=== PATIENT | female | born 1945 | race Caucasian/White ===

== ENCOUNTER 2019-02-20 12:47 | Emergency (ER) | payer MEDICARE ==
[~2019-02-20] VITALS: Ht 172.7 cm; Wt 76.0 kg
[2019-02-20 12:50] VITALS: BP 140/40
[2019-02-20] MEDS ORDERED: acetaminophen 325mg tablet PO ONE (13:00)
== END 2019-02-20 14:13 | disposition home or self-care (01) ==
LOC: ER 12:48
DX: S06.0X0A Concussion without loss of consciousness, initial encounter (principal); S00.03XA Contusion of scalp, initial encounter; S00.83XA Contusion of other part of head, initial encounter; W18.39XA Other fall on same level, initial encounter; Y93.89 Activity, other specified; Y92.098 Other place in other non-institutional residence as the place of occurrence of the external cause; Y99.8 Other external cause status
CPT/HCPCS: 70450; 70486; 99284

== ENCOUNTER 2019-03-27 10:18 | Emergency (ER) | payer MEDICARE ==
[~2019-03-27] VITALS: Ht 172.7 cm; Wt 78.9 kg
[2019-03-27 10:42] VITALS: BP 158/68
[2019-03-27] MEDS ORDERED: CEPH500C5 PO (11:58)
[2019-03-27] MEDS ORDERED: TETanus/Pertussis (Acell)/Diphther VAC/PF (Tdap-Adult) 0.5ml syringe IMVAC ONE (12:00)
[2019-03-27] MEDS ORDERED: gentamicin 0.1% topical ointment 15gm TP SCH (12:00)
== END 2019-03-27 12:18 | disposition home or self-care (01) ==
LOC: ER 10:18
DX: L03.115 Cellulitis of right lower limb (principal); E78.00 Pure hypercholesterolemia, unspecified; G89.29 Other chronic pain; Z98.890 Other specified postprocedural states
CPT/HCPCS: 90471; 99284

== ENCOUNTER 2020-10-31 16:23 | Emergency (ER) | payer MEDICARE ==
[~2020-10-31] VITALS: Ht 170.2 cm; Wt 76.9 kg
[2020-10-31 17:09] VITALS: BP 141/71
[2020-10-31] MEDS ORDERED: LIDOcaine/epinephrine/tetracaine TOPICAL sol 3 ML syringe TOP ONE (18:20)
[2020-10-31] MEDS ORDERED: LIDOcaine 1% W/epiNEPHrine 1:200,000 10ml vial IJ ONE (18:30)
[2020-10-31] MEDS ORDERED: TETanus/Pertussis (Acell)/Diphther VAC/PF (Tdap-Adult) 0.5ml syringe IMVAC ONE (18:40)
== END 2020-10-31 19:10 | disposition home or self-care (01) ==
LOC: ER 16:26
DX: S81.811A Laceration without foreign body, right lower leg, initial encounter (principal); E78.00 Pure hypercholesterolemia, unspecified; I10 Essential (primary) hypertension; G89.29 Other chronic pain; Z72.89 Other problems related to lifestyle; W01.198A Fall on same level from slipping, tripping and stumbling with subsequent striking against other object, initial encounter; Y93.89 Activity, other specified; Y92.89 Other specified places as the place of occurrence of the external cause; Y99.8 Other external cause status
CPT/HCPCS: 99281

== ENCOUNTER 2022-07-06 18:26 | Emergency (ER) | payer MEDICARE ==
[~2022-07-06] VITALS: Ht 170.2 cm; Wt 68.2 kg
[2022-07-06 18:31] VITALS: BP 206/162
== END 2022-07-06 19:37 | disposition home or self-care (01) ==
LOC: ER 18:27
DX: S60.221A Contusion of right hand, initial encounter (principal); E78.00 Pure hypercholesterolemia, unspecified; G89.29 Other chronic pain; Z72.89 Other problems related to lifestyle; Z98.890 Other specified postprocedural states; W01.0XXA Fall on same level from slipping, tripping and stumbling without subsequent striking against object, initial encounter; Y93.89 Activity, other specified; Y92.89 Other specified places as the place of occurrence of the external cause; Y99.8 Other external cause status
CPT/HCPCS: 73110; 73130; 99284

== ENCOUNTER 2022-08-17 17:30 | Emergency (ER) | payer MEDICARE ==
[~2022-08-17] VITALS: Ht 170.2 cm; Wt 80.0 kg
[2022-08-17] MEDS ORDERED: LIDOCAINE 2%/EPI 1:100,000 inj. Multi-dose 20 ML VIAL IJ ONE (20:15)
[2022-08-17] MEDS ORDERED: bacitracin 15gm ointment TP ONE (20:15)
[2022-08-17] MEDS ORDERED: TETanus/Pertussis (Acell)/Diphther VAC/PF (Tdap-Adult) 0.5ml syringe IMVAC ONE (20:15)
--- NOTE | 2022-08-17 21:00 | NUR ---
[employer] CRANBERRY GELACIO AT BEDSIDE SUTURING PT'S LACERATION ABOVE R EYEBROW
[2022-08-17 21:33] VITALS: BP 118/49
== END 2022-08-17 21:36 | disposition home or self-care (01) ==
LOC: ER 17:30
DX: S01.111A Laceration without foreign body of right eyelid and periocular area, initial encounter (principal); S80.211A Abrasion, right knee, initial encounter; W19.XXXA Unspecified fall, initial encounter; Y93.89 Activity, other specified; Y92.89 Other specified places as the place of occurrence of the external cause; Y99.8 Other external cause status
CPT/HCPCS: 12011; 90471; 90715; 99284

== ENCOUNTER 2022-11-25 15:37 | Emergency (ER) | payer MEDICARE ==
[~2022-11-25] VITALS: Ht 167.6 cm; Wt 72.7 kg
[2022-11-25] MEDS ORDERED: LIDOcaine 1% 30ml preserv. free vial SQ STA (17:39)
[2022-11-25] MEDS ORDERED: normal saline 1000ML IV soln IVB ONE (18:25)
[2022-11-25] MEDS ORDERED: ondansetron/PF 4mg/2ml inj IV ONE (19:35)
[2022-11-25] MEDS ORDERED: propofol 1000mg/100ml bottle 100 ML IV ONE (20:24)
--- NOTE | 2022-11-25 20:30 | NUR ---
Unable to obtain Blood Pressure per moderate sedation protocol per MD order. Blood pressure cuff interfering with IV medication administration.
[2022-11-25] MEDS ORDERED: fentaNYL/PF 50MCG/1 ML 2ML syringe IV ONE (20:45)
[2022-11-25 21:12] VITALS: BP 152/66
[2022-11-25] MEDS ORDERED: ketorolac tromethamine 15mg/ml inj. IV ONE (21:40)
[2022-11-25] MEDS ORDERED: HYDR-3965 PO (21:41)
== END 2022-11-25 22:10 | disposition home or self-care (01) ==
LOC: ER 15:38
DX: S52.91XA Unspecified fracture of right forearm, initial encounter for closed fracture (principal); E78.00 Pure hypercholesterolemia, unspecified; G89.29 Other chronic pain; M54.9 Dorsalgia, unspecified; E03.9 Hypothyroidism, unspecified; W18.39XA Other fall on same level, initial encounter; Y93.89 Activity, other specified; Y92.89 Other specified places as the place of occurrence of the external cause; Y99.8 Other external cause status
CPT/HCPCS: 25605; 73090; 73100; 73130; 96361; 96374; 96375; 99152; 99153; 99285; J1885; J2405; J2704; J3010; J7030; 94760; A4565; A4620; A6446; A6449

== ENCOUNTER 2023-11-23 03:17 | Emergency (ER) | payer MEDICARE, OTHER ==
[~2023-11-23] VITALS: Ht 170.2 cm; Wt 75.0 kg
[2023-11-23] MEDS: normal saline 1000ml 1,000 ML IV ONE ×2 (03:58→05:04)
[2023-11-23] MEDS: ondansetron/PF 4mg/2ml inj IV ONE ×2 (03:58→07:05)
[2023-11-23] MEDS: acetaminophen 1,000mg/100ml IV 100 ML IV ONE (04:02)
[2023-11-23 04:34] LABS: ANION GAP 15 (8-16); BLOOD UREA NITROGEN 12 MG/DL (7-18); BUN/CREATININE RATIO 14.8 (10.0-20.0); CALCIUM 9.5 MG/DL (8.5-10.1); CHLORIDE 102 MMOL/L (99-107); CREATININE 0.81 MG/DL (0.40-0.90); GLUCOSE 107 MG/DL (70-104); PRO BRAIN NATRIURETIC PEPTIDE 817 PG/ML (0-450); SODIUM 138 MMOL/L (135-145); TOTAL CARBON DIOXIDE 21.2 MMOL/L (24-32); eCRCL 58 ML/MIN; eGFR 69 ML/MIN
[2023-11-23 04:35] LABS: BASOPHILS # (AUTO) 0.1 X10'3 (0-0.2); HEMOGLOBIN 12.6 g/dl (12.0-16.0); NEUTROPHILS # (AUTO) 3.7 X10'3 (1.8-7.7); RED CELL DISTRIBUTION WIDTH 14.8 % (11.5-14.5)
[2023-11-23 04:37] LABS: EOSINOPHILS # (AUTO) 0.1 X10'3 (0-0.9); EOSINOPHILS % (AUTO) 1.9 % (0-6); HEMATOCRIT 36.9 % (35.0-45.0); LYMPHOCYTES # (AUTO) 2.7 X10'3 (1.1-4.8); LYMPHOCYTES % (AUTO) 36.5 % (21-51); MEAN CORPUSCULAR HEMOGLOBIN 35.1 PG (27.0-31.0); MEAN CORPUSCULAR HGB CONC 34.1 g/dL (33.0-36.5); MEAN CORPUSCULAR VOLUME 102.8 FL (78-98); MEAN PLATELET VOLUME 10.2 FL (7.4-10.4); MONOCYTES # (AUTO) 0.8 X10'3 (0-0.9); MONOCYTES % (AUTO) 10.9 % (2-12); NEUTROPHILS % (AUTO) 49.7 % (42-75); RED BLOOD COUNT 3.59 X10'6 (4.20-5.60); WHITE BLOOD COUNT 7.4 X10'3 (4.5-11.0)
[2023-11-23 04:39] LABS: POTASSIUM 2.9 MMOL/L (3.5-5.1)
[2023-11-23] MEDS ORDERED: ketorolac trometh. 30mg/ml inj. IV ONE (04:50)
[2023-11-23 05:02] LABS: PLATELET COUNT 210 X10'3 (140-440)
[2023-11-23] MEDS: potassium Cl 20 mEq SR tablet PO STA (05:03)
[2023-11-23] MEDS: ketorolac tromethamine 15mg/ml inj. IV ONE (05:21)
[2023-11-23] MEDS: loperamide 2mg capsule PO ONE (05:22)
[2023-11-23] MEDS: POTASSIUM BICARB 20meq eff tab 20 MEQ TABLET.EFF PO ONE (05:24)
[2023-11-23] MEDS ORDERED: LOPE2CAP PO (05:53)
[2023-11-23] MEDS ORDERED: PROC-8 PO (05:53)
[2023-11-23] MEDS ORDERED: POTA-207 PO (05:53)
[2023-11-23 06:51] LABS: BILIRUBIN,URINE MODERATE (Neg); COLOR,URINE YELLOW (Yellow); GLUCOSE, URINE NEGATIVE (Neg); KETONES,URINE >=80 mg/dl (Neg); LEUKOCYTE ESTERASE ,URINE NEGATIVE (Neg); OCCULT BLOOD,URINE NEGATIVE (Neg); PROTEIN,URINE NEGATIVE (Neg); UROBILINOGEN,URINE 0.2 E.U/dL (0.2-1.0)
[2023-11-23 06:52] LABS: UA COLLECTION TYPE CLN CATCH MIDSTREAM
[2023-11-23 06:54] LABS: BACTERIA,URINE NONE SEEN /HPF (Neg); CLARITY,URINE SLIGHTLY CLOUDY (Clear); MUCUS STRANDS FEW /LPF (Neg); NITRITES, URINE NEGATIVE (Neg); RBC,URINE NONE SEEN /HPF (0-2); SQUAMOUS EPITHELIAL CELL,UR FEW /LPF (FEW); WBC,URINE 0-4 /HPF (0-4)
[2023-11-23 12:06] VITALS: BP 153/67; PULSE 67; RESP 14; TEMP 98.1; O2SAT 97
== END 2023-11-23 12:10 | disposition home or self-care (01) ==
LOC: ER 03:18
DX: B34.9 Viral infection, unspecified (principal); E87.6 Hypokalemia; Z20.822 Contact with and (suspected) exposure to COVID-19; E78.00 Pure hypercholesterolemia, unspecified; G89.29 Other chronic pain; Z98.890 Other specified postprocedural states; Z72.89 Other problems related to lifestyle
CPT/HCPCS: 36415; 71045; 80048; 81001; 83880; 84132; 84145; 84484; 85025; 87502; 87503; 87811; 93005; 96361; 96374; 96375; 96376; 99285; J0131; J1885; J2405; J7030

== ENCOUNTER 2024-04-28 11:50 | Day surgery (SDC) | payer MEDICARE, OTHER ==
[2024-04-27 10:20] LABS: EOSINOPHILS # (AUTO) 0.5 X10'3 (0-0.9); LYMPHOCYTES # (AUTO) 2.3 X10'3 (1.1-4.8); MONOCYTES # (AUTO) 0.8 X10'3 (0-0.9); PRE OP HEMOGLOBIN 11.2 g/dL (12.0-16.0); PRE OP WHITE BLOOD COUNT 7.7 10'3 (4.8-10.8)
[2024-04-27 10:21] LABS: BASOPHILS # (AUTO) 0.1 X10'3 (0-0.2); BASOPHILS % (AUTO) 1.2 % (0-1); EOSINOPHILS % (AUTO) 6.8 % (0-6); LYMPHOCYTES % (AUTO) 29.7 % (21-51); MEAN CORPUSCULAR HEMOGLOBIN 35.4 PG (27.0-31.0); MEAN CORPUSCULAR HGB CONC 33.3 g/dL (33.0-36.5); MEAN CORPUSCULAR VOLUME 106.4 FL (78-98); MEAN PLATELET VOLUME 9.8 FL (7.4-10.4); MONOCYTES % (AUTO) 10.8 % (2-12); NEUTROPHILS % (AUTO) 51.5 % (42-75); PRE OP HEMATOCRIT 33.6 % (35.0-45.0); PRE OP PLATELET COUNT 227 X10'3 (140-440); RED BLOOD COUNT 3.16 X10'6 (4.20-5.60)
[2024-04-27 10:25] LABS: BILIRUBIN,URINE NEGATIVE (Neg); CLARITY,URINE CLEAR (Clear); COLOR,URINE YELLOW (Yellow); GLUCOSE, URINE NEGATIVE (Neg); KETONES,URINE NEGATIVE (Neg); LEUKOCYTE ESTERASE ,URINE NEGATIVE (Neg); NITRITES, URINE NEGATIVE (Neg); OCCULT BLOOD,URINE NEGATIVE (Neg); PH,URINE 5.5 (4.8-8.0); PROTEIN,URINE NEGATIVE (Neg); UROBILINOGEN,URINE 0.2 E.U/dL (0.2-1.0)
[2024-04-27 10:29] LABS: UA COLLECTION TYPE CLN CATCH MIDSTREAM
[2024-04-27 10:33] LABS: PRE OP PROTIME 10.9 SECONDS (9.0-12.0)
[2024-04-27 11:54] LABS: ALBUMIN 3.5 G/DL (3.4-5.0); ALKALINE PHOSPHATASE 100 IU/L (46-116); BLOOD UREA NITROGEN 10 MG/DL (7-18); BUN/CREATININE RATIO 13.5 (10.0-20.0); CALCIUM 8.4 MG/DL (8.5-10.1); CHLORIDE 108 MMOL/L (99-107); CREATININE 0.74 MG/DL (0.40-0.90); PRE OP ALT 49 U/L (30-65); PRE OP ANION GAP 5 (8-16); PRE OP AST 35 U/L (10-37); PRE OP BILIRUB, TOTAL 0.6 MG/DL (0.0-1.0); PRE OP GLUCOSE 94 MG/DL (70-104); PRE OP POTASSIUM 4.4 MMOL/L (3.4-5.1); PRE OP SODIUM 144 MMOL/L (135-145); TOTAL CARBON DIOXIDE 30.6 MMOL/L (24-32); TOTAL PROTEIN 6.9 G/DL (6.4-8.2); eGFR 76 ML/MIN
[2024-04-28] VITALS (11 sets, daily range): BP systolic 145–164; BP diastolic 57–69; PULSE 60–70; RESP 9–17; TEMP 99.1–99.3; O2SAT 93–99
[~2024-04-28] VITALS: Ht 170.2 cm; Wt 75.8 kg
[2024-04-28] MEDS: ceFAZolin 2gm in dextrose, iso 50 ML IV ONE (05:30)
[2024-04-28] MEDS: DOCUMENT DATE & TIME OF BETA-BLOCKER PO ONE (05:30)
[~2024-04-28 11:50] MED LIST: DONE10TA44 PO; GABA300C PO; LEVO88TA7 PO; PROP20TA6 PO; ROSU40TA89 PO
[2024-04-28] MEDS: famotidine 20mg tablet PO ONE (12:18)
[2024-04-28] MEDS: ringers solution, lacted 1,000 ML IV SCH (12:19)
[2024-04-28] MEDS ORDERED: bacitracin 15gm ointment TP ONE (13:08)
[2024-04-28] MEDS ORDERED: BUPIVAcaine 2.5mg/ml inj 50ml vial (contains preservative) ONE (13:09)
[2024-04-28] MEDS ORDERED: fentaNYL/PF 50MCG/1 ML 2ML syringe ONE (13:31)
[2024-04-28] MEDS ORDERED: midazolam 1 mg/ML 2ml injection ONE (13:31)
[2024-04-28] MEDS ORDERED: propofol inj 20 ML IV ONE (13:35)
[2024-04-28] MEDS ORDERED: ROPIVAcaine 0.5% (5mg/ml) 30ml vial ONE (13:35)
[2024-04-28] MEDS ORDERED: sevoflurane 250ml liquid IH ONE (13:39)
[2024-04-28] MEDS ORDERED: proCHLORperazine 10 MG/2 ml inj IV PRN (14:25)
[2024-04-28] MEDS ORDERED: ondansetron/PF 4mg/2ml inj IV PRN (14:25)
[2024-04-28] MEDS ORDERED: labetalol 20mg/4ml (5mg/ml) syringe IV PRN (14:25)
[2024-04-28] MEDS ORDERED: morphine 2 MG/ML inj. syringe IV PRN (14:25)
[2024-04-28] MEDS ORDERED: meperidine/PF 25mg/ml syringe IV PRN ×2 (14:25)
[2024-04-28] MEDS ORDERED: morphine 4 MG/ML inj SYRINge IV PRN (14:25)
[2024-04-28] MEDS ORDERED: ringers solution, lacted 1,000 ML IV SCH (14:25)
[2024-04-28] MEDS ORDERED: ondansetron/PF 4mg/2ml inj ONE (14:32)
[2024-04-28] MEDS: BUPIVAcaine 2.5mg/ml inj 50ml vial (contains preservative) SQ ONE (14:35)
[2024-04-28] MEDS: meperidine/PF 25mg/ml syringe IV PRN (15:03)
== END 2024-04-28 16:56 | disposition home or self-care (01) ==
LOC: PAS 11:50
PROVIDERS: ATTEND Podiatrist Foot & Ankle Surgery
DX: M20.42 Other hammer toe(s) (acquired), left foot (principal); I10 Essential (primary) hypertension; E03.9 Hypothyroidism, unspecified; E78.5 Hyperlipidemia, unspecified; F41.9 Anxiety disorder, unspecified; G62.9 Polyneuropathy, unspecified; F43.10 Post-traumatic stress disorder, unspecified; Z87.891 Personal history of nicotine dependence; Z79.899 Other long term (current) drug therapy; Z90.89 Acquired absence of other organs; Z98.49 Cataract extraction status, unspecified eye; Z98.51 Tubal ligation status; Z98.890 Other specified postprocedural states
CPT/HCPCS: 28270; 28285; 36415; 73660; 80053; 81003; 82948; 85025; 85610; 85730; J0690; J1100; J2175; J2250; J2405; J2704; J3010; J3490; J7030; J7120; Z7506; Z7508; Z7512; 76000; A4615; A4618; A6253; A6446; A6449; A6455; A7000; J2795